=== PATIENT | male | born 1965 | race Caucasian/White ===

== ENCOUNTER 2025-01-08 07:01 | Outpatient (OUT) | payer BC, SELFPAY ==
--- NOTE | 2025-01-08 | NM_ITS ---
The [address] [address] Patient Name: EVELYN OBANDO MRN: [id number] date: 1965 Sex: M Assigned Patient Location: [place] Current Patient Location: Accession/Order Number: [id number] Exam Date: 01/09/2025 08:00 Report Date: 01/09/2025 08:16 At the request of: WENDI MATA MD Procedure: NM thyroid w uptake THYROID UPTAKE AND SCINTIGRAM CLINICAL DATA: Hypothyroidism with weight gain. COMPARISON: None Following the oral ingestion of 285 micro-Ci of I-123, thyroid uptakes were measured at 6 hours and 24 hours. These measurements are 9.3% and 17.2% respectively. These are in normal range (6 hours 6 - 14%, 24 hours 10 - 30%). Gamma camera imaging was also performed. The thyroid lobes are similar in size. There are no obvious hot or cold nodules. NM/NM thyroid w uptake IMPRESSION: WITHIN NORMAL LIMITS. Impression dictated by: Meera Ratliff M.D. 01/09/2025 8:16 AM Dictation Location: [place] [address] Electronically authenticated by: [id number] Y Date: 01/09/2025 08:16
== END 2025-01-08 07:02 | disposition home or self-care (01) ==
LOC: NM 07:05
PROVIDERS: PCP Family Medicine; Visit Provider Family Medicine
DX: E03.9 Hypothyroidism, unspecified (principal)
CPT/HCPCS: 78014; A9516